=== PATIENT | female | born 1975 | race Two or more races ===

== ENCOUNTER 2023-11-28 14:39 | Emergency (ER) | payer MEDICAID, OTHER ==
[~2023-11-28] VITALS: Ht 167.6 cm; Wt 98.6 kg
[2023-11-28 16:10] LABS: Urine Bacteria None Seen /hpf (None Seen)
[2023-11-28 16:22] LABS: Urine Blood 1+ /uL (Negative); Urine Clarity Clear (Clear); Urine Color Light-Yellow (Yellow); Urine Protein, UAD Negative (Negative); Urine Specific Gravity 1.029 (1.001-1.035); Urine Urobilinogen Normal (Negative); Urine WBC 2 /hpf (0 - 5)
[2023-11-28 16:39] LABS: Basophils # (auto) 0 10 ^3/uL (0-0.2); Basophils % (auto) 0.3 % (0.0-2.0); Eosinophils # (auto) 0.3 10 ^3/uL (0-0.8); Hematocrit 39.9 % (36.0-46.0); Hemoglobin 13.4 g/dL (12.2-16.2); Lymphocytes # (auto) 1.9 10 ^3/uL (0.4-5.4); Lymphocytes % (auto) 19.4 % (10.0-50.0); Mean Corpuscular Hemoglobin 31.5 pg (28.0-32.0); Mean Corpuscular Hgb Conc. 33.5 g/dL (32.0-36.0); Mean Corpuscular Volume 94.1 fL (80.0-100.0); Monocytes # (auto) 0.7 10 ^3/uL (0-1.3); Monocytes % (auto) 6.9 % (0.0-12.0); Neutrophils % (auto) 70.4 % (37.0-80.0); Nucleated Red Blood Cells % 0.1 %; Red Blood Cells 4.24 10^6/uL (4.0-5.20); Red Cell Distribution Width 16.2 % (11.8-14.3); White Blood Cell 9.9 10^3/uL (4.4-10.8)
[2023-11-28 17:06] LABS: Alanine Aminotransferase 23 U/L (7-40); Albumin 4.4 g/dL (3.2-4.8); Alkaline Phosphatase 127 U/L (46-116); Anion Gap 7 (5-15); Aspartate Aminotransferase 28 U/L (13-40); Bilirubin, Total 0.3 mg/dL (0.2-1.0); Blood Urea Nitrogen 11 mg/dL (9-23); Calcium 9.8 mg/dL (8.5-10.1); Carbon Dioxide 24 mmol/L (20-30); Chloride 108 mmol/L (98-107); Glucose 229 mg/dL (74-106); Potassium 4.1 mmol/L (3.5-5.1); Sodium 139 mmol/L (136-145)
[2023-11-28 17:07] LABS: Total Protein 7.3 g/dL (5.7-8.2)
[2023-11-28 18:33] VITALS: BP 138/82; PULSE 92; RESP 17; TEMP 98.2; O2SAT 100
== END 2023-11-28 18:36 | disposition home or self-care (01) ==
LOC: ER 14:39
DX: K29.70 Gastritis, unspecified, without bleeding (principal)
CPT/HCPCS: 36415; 74176; 80053; 81001; 85025